=== PATIENT | female | born 2000 | race Two or more races ===

== ENCOUNTER 2024-06-29 12:45 | Emergency (ER) | payer SELFPAY ==
[2024-06-29 12:51] VITALS: BP 114/68
[2024-06-29 13:15] LABS: % Eosinophils 2.9 % (0-6); % Immature Granulocytes 0.2 % (0-0.5); % Monocytes 7.1 % (1.7-9.3); % Neutrophils 57.8 % (42.2-75.2); Absolute Basophils 0.1 10^3/uL (0-0.2); Absolute Eosinophils 0.2 10^3/uL (0-0.7); Absolute Lymphocytes 1.8 10^3/uL (1.2-3.4); Absolute Monocytes 0.4 10^3/uL (0.1-0.6); Absolute Neutrophils 3.3 10^3/uL (1.4-6.5); Hematocrit 33.5 % (37.0-47.0); Hemoglobin 11.5 g/dL (12.0-16.0); Mean Corp Hgb Conc. 34.3 g/dL (33.0-37.0); Mean Corpuscular Hgb 28.4 pg (27.0-31.0); Mean Corpuscular Volume 82.7 fL (81.0-99.0); Mean Platelet Volume 10.4 fL (7.4-10.4); Nucleated Red Blood Cells % 0 %; Platelet Count 207 10^3/uL (130-400); Red Blood Cell Count 4.05 10^6/uL (4.20-5.40); Red Cell Dist. Width 12.7 % (11.5-14.5); White Blood Cell Count 5.8 10^3/uL (4.8-10.8)
--- NOTE | 2024-06-29 13:17 | ED.GENMED ---
History of Present Illness
General
Chief Complaint: Problems
Time Seen by Provider: 06/29/24 13:16
History of Present Illness
History of Present Illness:
TIME OF INITIAL ENCOUNTER:
HPI: Patient is approximately 7 weeks and reports lower abdominal cramping along with brown discharge yesterday.
EXAM:
NUMBER AND COMPLEXITY OF PROBLEMS ADDRESSED AT THE ENCOUNTER
� Chronic conditions affecting care: Has had 2 C-sections
� Acute Exacerbation and/or Progression of Chronic Illness:
� Differential Diagnosis includes:
AMOUNT AND/OR COMPLEXITY OF DATA TO BE REVIEWED AND ANALYZED
� I performed an independent evaluation of and my interpretation is:
EKG:
CT:
X-rays:
Laboratory Studies: White count normal, hemoglobin 11.5,
Other:
� Review of other/old records:
� Clinical information was obtained by an independent historian:
� Prescriptions/Medications Considered but not given:
� Further testing considered but not performed:
RISK OF COMPLICATIONS AND/OR MORBIDITY OR MORTALITY OF PATIENT MANAGEMENT
� Social determinants of health affecting care:
� Discussion with other providers:
� Escalation of care including admission/observation vs risk of discharge considered:
ANY OTHER UPDATES:
Course
Orders/Labs/Results
Orders:
Orders
06/29/24 12:58
Test Result ONCE
06/29/24 13:03
Complete Blood Count/With Diff Urgent
Comprehensive Metabolic Panel Urgent
HCG, Serum Qualitative Screen Urgent
Abnormal Lab Results
06/29/24
13:03
RBC 4.05 L 10^6/uL
(4.20-5.40)
Hgb 11.5 L g/dL
(12.0-16.0)
Hct 33.5 L %
(37.0-47.0)
06/29/24 13:03
Vital Signs
Initial and Last Documented VS:
Initial Vital Signs
Temp Pulse Resp BP Pulse Ox
36.9 C 76 18 114/68 100
06/29/24 12:51 06/29/24 12:51 06/29/24 12:51 06/29/24 12:51 06/29/24 12:51
Last Documented Vital Signs
Temp Pulse Resp BP Pulse Ox
36.9 C 76 18 114/68 100
06/29/24 12:51 06/29/24 12:51 06/29/24 12:51 06/29/24 12:51 06/29/24 12:51
ED Attending Note
-
Portions of this chart may have been created with voice recognition software.� Occasional wrong word or��sound alike� substitutions may have occurred due to the inherent limitations of voice recognition software.
Discharge Plan
Interventions
Interventions:
*Risk Screen - Suicide Last Done: 06/29/24 12:51
*General Assessment Last Done: 06/29/24 12:51
*ED- Fall Risk Assessment Last Done: 06/29/24 12:51
*ED COVID-19 Vaccine History Last Done: 06/29/24 12:51
Discharge Date and Time
Print Language: LIBERIAN
[2024-06-29 13:23] LABS: ALT (SGPT) < 10 U/L (0-35); AST (SGOT) 28 U/L (14-36); Albumin 4.9 g/dl (3.5-5.0); Alkaline Phosphatase 84 U/L (38-126); Blood Urea Nitrogen 9 mg/dl (7-17); Calcium 9.2 mg/dl (8.4-10.2); Carbon Dioxide 23 mmol/L (22-30); Chloride 106 mmol/L (98-107); Glucose 91 mg/dl (70-99); Potassium 3.8 mmol/L (3.5-5.1); Sodium 141 mmol/L (135-145); Total Bilirubin 1.6 mg/dl (0.2-1.3); Total Protein 7.1 g/dl (6.3-8.2); eGFR > 60.00
[2024-06-29 13:26] LABS: HCG, Serum Qualitative Screen Positive
--- NOTE | 2024-06-29 14:22 | ED.GENMED ---
History of Present Illness
General
Chief Complaint: Problems
Source: patient and spouse
Exam Limitations: none
Time Seen by Provider: 06/29/24 13:16
Nursing documentation reviewed up to this point in time: agreed with
History of Present Illness
History of Present Illness:
Patient to ED with complaint of brown vaginal discharge and pelvic cramping x 24 hours. She reports that she is 7 weeks . Denies fever/chills, abdominal or backpain. No red blood, no clots. Brought to ED by spouse for eval.
Past History
Past History
ED Past Medical History: None
ED Past Surgical History:
Social History
Tobacco: Non-smoker
Alcohol: None
Drug: None
Review of Systems
Review of Systems
Allergies reviewed?: Yes
All Other Systems: ROS reviewed and negative except as documented in HPI and ROS
Constitutional: Reports no symptoms
EENT: Reports no symptoms
Respiratory: Reports no symptoms
Cardiac: Reports no symptoms
ABD/GI: Reports no symptoms
: Reports bleeding (brown vaginal discharge x 24 hours.)
Musculoskeletal: Reports no symptoms
Skin: Reports no symptoms
Neurological: Reports no symptoms
Psychiatric: Reports no symptoms
Phy Exam
General Physical Exam
General Presentation: well appearing and no apparent distress
General age: appears stated age
General Skin: warm and dry
General Habitus: normal
General Mental: alert
Gastrointestinal Exam
Gastrointestinal Exam: non tender, soft, no organomegaly, no pulsatile mass and non distended
Genitourinary Exam Female
Exam Female: no adnexal tenderness, no CMT, no lesions and vaginal bleeding (minimal light brown discharge)
Vaginal Exam: blood (minimal light brown discharge)
Visual exam of cervix: os closed
Uterus: normal size
Musculoskeletal Exam
Musculoskeletal Exam: full ROM and neuro vasc intact
Skin Exam
Skin Exam: normal color and warm/dry
Psychiatric Exam
Psychiatric Exam: normal mood/affect
Course
Orders/Labs/Results
Orders:
Orders
06/29/24 12:58
Test Result ONCE
06/29/24 13:03
Beta HCG Quantitative Urgent
Comment: ADD ON
Complete Blood Count/With Diff Urgent
Comprehensive Metabolic Panel Urgent
HCG, Serum Qualitative Screen Urgent
06/29/24 13:17
Add On- LAB Urgent
Tests Added?: hcg quant
06/29/24 13:18
US W Transvaginal Urgent
Reason For Exam: 7wk preg vag bleed; lower pain
06/29/24 16:32
Urinalysis Reflex To Culture Urgent
Date Specimen was Collected: 06/29/24
Time Specimen was Collected: 16:31
Abnormal Lab Results
06/29/24 06/29/24
13:03 16:32
RBC 4.05 L 10^6/uL
(4.20-5.40)
Hgb 11.5 L g/dL
(12.0-16.0)
Hct 33.5 L %
(37.0-47.0)
Creatinine 0.5 L mg/dL
(0.6-1.0)
Total Bilirubin 1.6 H mg/dl
(0.2-1.3)
Urine Ketones 3+ A
(Negative)
06/29/24 13:03
06/29/24 13:03
Vital Signs
Initial and Last Documented VS:
Initial Vital Signs
Temp Pulse Resp BP Pulse Ox
98.4 F 76 18 114/68 100
06/29/24 12:51 06/29/24 12:51 06/29/24 12:51 06/29/24 12:51 06/29/24 12:51
Last Documented Vital Signs
Temp Pulse Resp BP Pulse Ox
98.4 F 76 18 114/68 100
06/29/24 12:51 06/29/24 12:51 06/29/24 12:51 06/29/24 12:51 06/29/24 12:51
Information
Weeks gestation: Weeks: (6.5)
Location: Location: ([facility])
*Radiology
Radiology exam reviewed: radiology read reviewed
*Pulse Oximetry
Patient hypoxic: no
*Critical Care Note
Total Time (30-74mins, 75-104mins- exclusive of procedures): Not Applicable
Update Note
Update Note:
US report reviewed with her. Discussed findings of subchorionic bleeding as well as finding of hemorrhagic cyst. She contact her OB tomorrow and schedule follow up appt. Courtney carrasquillo s/s to return to ED and she is agreeable to plan
ED Attending Note
-
Portions of this chart may have been created with voice recognition software.� Occasional wrong word or��sound alike� substitutions may have occurred due to the inherent limitations of voice recognition software.
Discharge Plan
Departure
Patient Disposition: Home (Routine Discharge)
Date of Disposition: 06/29/24
Time of Disposition: 16:38
Patient with high blood pressure during this ER visit?: No
Condition: Good
Covid-19: Not Applicable
Discharge Problem:
Bleeding in early
Instructions: Subchorionic Bleeding
Referrals:
Sherri Acosta, DO [Active] - Call in 1-3 days for appt
NONE,* [Family Provider] -
Interventions
Interventions:
*Risk Screen - Suicide Last Done: 06/29/24 12:51
*General Assessment Last Done: 06/29/24 12:51
*Neglect/Abuse Screening Last Done: 06/29/24 13:23
*ED- Fall Risk Assessment Last Done: 06/29/24 12:51
*ED COVID-19 Vaccine History Last Done: 06/29/24 12:51
*Nursing Disposition Last Done: 06/29/24 17:20
ED-Female Genitourinary Assessment Last Done: 06/29/24 13:23
Discharge Date and Time
Discharge Date/Time: 06/29/24 17:21
Print Language: MONGOLIAN
[2024-06-29 17:00] LABS: Urine Albumin Negative (Neg - Trace); Urine Bilirubin Negative (Negative); Urine Character Clear (Clear); Urine Color Yellow; Urine Glucose Negative (Negative); Urine Ketone 3+ (Negative); Urine Leukocyte Negative (Negative); Urine Nitrite Negative (Negative); Urine Occult Blood Negative (Negative); Urine Urobilinogen Negative (Neg - 1+)
== END 2024-06-29 17:21 | disposition home or self-care (01) ==
LOC: EMR 12:45
PROVIDERS: Nurse Practitioner; Student in an Organized Health Care Education/Training Program; EMERGENCY PHYSICIAN Emergency Medicine
DX: O20.8 Other hemorrhage in early pregnancy (principal); Z3A.01 Less than 8 weeks gestation of pregnancy; R10.2 Pelvic and perineal pain
CPT/HCPCS: 99284; 76801; 76817; 80053; 81003; 84702; 84703; 85025